=== PATIENT | female | born 1980 | race Caucasian/White ===

== ENCOUNTER 2017-03-05 13:28 | Emergency (ER) | payer BC, MEDICAID ==
[~2017-03-05] VITALS: Ht 167.6 cm; Wt 85.2 kg
[2017-03-05 13:58] VITALS: BP 128/83
[2017-03-05] MEDS ORDERED: IBUPROFEN 200 MG TABLET PO ONE (14:30)
[2017-03-05] MEDS ORDERED: IBUPROFEN 200 MG TABLET ONE (15:08)
== END 2017-03-05 15:46 | disposition home or self-care (01) ==
LOC: ED 15:40
DX: S93.491A Sprain of other ligament of right ankle, initial encounter (principal); X58.XXXA Exposure to other specified factors, initial encounter; Y93.89 Activity, other specified; Y92.009 Unspecified place in unspecified non-institutional (private) residence as the place of occurrence of the external cause; Y99.8 Other external cause status
CPT/HCPCS: 99284